=== PATIENT | male | born 1960 | race Caucasian/White ===

== ENCOUNTER 2021-10-19 18:05 | Emergency (ER) | payer MEDICARE, MEDICAID, SELFPAY ==
[2021-10-19 18:09] VITALS: BP 146/74; PULSE 82; RESP 17; TEMP 36.8; O2SAT 94; BMI 21.3
--- NOTE | 2021-10-19 18:19 | ED_ITS ---
HPI - General Adult General: Chief complaint: Trauma Stated complaint: L HAND INJURY Time Seen by Provider: 10/19/21 18:13 History of Present Illness: Patient is a 61-year-old male with a history of pulmonary who complains of left hand pain. Patient tells me he put his hand between 2 plates about an hour ago and since then has been having severe hand pain. Patient denies any other injury. Denies any anticoagulation. No other focal complaints at this time. Onset:1 hr and 20 minutes ago Duration:ongoing Location:home Severity:moderate/severe Associated symptoms: Deny chest pain, dyspnea, nausea, rash, palpitations or vomiting Review of Systems Const: Denies: fever(s) or chills Eyes: Denies: change in vision ENMT: Denies: mouth pain Card: Denies: chest pain or palpitations Resp: Denies: dyspnea or non-productive cough GI: Denies: abdominal pain, nausea, vomiting or diarrhea : Denies: dysuria Musc: Reports: extremity pain (+L hand pain) Skin/Breast: Denies: rash or new lesions Neuro: Denies: weakness in extremities Psych: Reports: other (Normal mood) Patrice/Lymph: Denies: easy bruising PFSH ED PFSH: Medical History Lymphoma Social History Smoking and tobacco status: never smoked Alcohol intake: never Substance/Drug Use: never Physical Exam Const: COMMON NORMALS: alert HENMT: COMMON NORMALS: atraumatic HEAD & SCALP: atraumatic MOUTH: moist mucous membranes not abnormal Eye: COMMON NORMALS: EOMs intact bilaterally and conjunctivae normal CONJUNCTIVA: Yes conjunctivae normal Neck/C-Spine: COMMON NORMALS: full ROM and supple Resp: COMMON NORMALS: normal respiratory effort and clear to auscultation bilaterally AUSCULTATION: clear to auscultation bilaterally Cardio: COMMON NORMALS: regular rate RATE: regular rate GI: COMMON NORMALS: Soft to palpation and non-tender PALPATION: Yes Soft to palpation Extremity: COMMON NORMALS: full ROM OTHER: +L left first and second PIP swelling and tenderness to palpation, no focal wrist tenderness palpation, cap refill less than 3 seconds in the affected extremity, sensation intact in the radial/median/ulnar distribution of the left hand, no scapholunate tenderness to palpation, no anatomic snuffbox tenderness on the affected side Neuro: SENSORIUM/ORIENTATION: Yes alert MOTOR EXAM: No Abnormal motor strength present and Other motor observations present (no focal motor deficits) Psych: COMMON NORMALS: speech normal SPEECH: Yes normal speech MOOD & AFFECT: Yes euthymic mood Course Vital Signs: Vital signs: Vital Signs Temperature 98.2 F 10/19/21 18:09 Pulse Rate 76 10/19/21 20:19 Respiratory Rate 17 10/19/21 18:09 Blood Pressure 140/85 10/19/21 20:19 Pulse Oximetry 95 10/19/21 20:19 MDM - General Adult Medical Decision Making 61-year-old male with history of lymphoma presents emergency room after crushing his left hand between to place a metal bar hours 20 minutes ago. On physical exam, patient is moderate tenderness palpation first and second digit PIP joints Neurovascular exam intact in the affected extremity. X-ray showed no focal fracture. Patient is given strict return instructions repeat x-ray in 1 week to ensure that he does not have any acute fractures. He declined to have any pain medication today. Disposition: Discharge. Patient counseled regarding diagnostic impression, treatment plan. Patient given ED strict return precautions to return for continuation, worsening, or development of new symptoms. Instructed to f/u w/ PCP regarding symptoms today. Patient verbalized understanding. Lab Data : 10/19/21 18:55 10/19/21 18:55 Radiology Impressions Hand X-Ray 10/19/21 18:17 IMPRESSION: No acute findings. Degenerative changes of the hand as described in the body of the report Laboratory Results WBC 3.9 10^3/uL (4.0-10.0) L 10/19/21 18:55 RBC 4.05 10^6/uL (4.1-5.3) L 10/19/21 18:55 Hgb 12.6 g/dL (11.7-16.6) 10/19/21 18:55 Hct 36.4 % (42.0-52.0) L 10/19/21 18:55 MCV 89.9 fl (80-94) 10/19/21 18:55 MCH 31.1 pg (28.0-34.0) 10/19/21 18:55 MCHC 34.6 g/dL (30.0-36.0) 10/19/21 18:55 RDW 13.2 % (12.1-15.1) 10/19/21 18:55 Plt Count 155 10^3/cmm (130-400) 10/19/21 18:55 MPV 10.3 fL (7.4-10.4) 10/19/21 18:55 Neut % (Auto) 45.6 % 10/19/21 18:55 Lymph % (Auto) 43.4 % 10/19/21 18:55 [place] % (Auto) 8.1 % 10/19/21 18:55 Eos % (Auto) 2.1 % 10/19/21 18:55 Baso % (Auto) 0.5 % 10/19/21 18:55 Neut # (Auto) 1.76 10^3/uL (1.8-7.7) L 10/19/21 18:55 Lymph # (Auto) 1.7 10^3/uL (0.8-4.8) 10/19/21 18:55 [place] # (Auto) 0.3 10^3/uL (0.2-0.9) 10/19/21 18:55 Eos # (Auto) 0.1 10^3/uL (0.0-0.8) 10/19/21 18:55 Baso # (Auto) 0.0 10^3/uL (0.0-0.1) 10/19/21 18:55 Nucleated RBC % (auto) 0 % 10/19/21 18:55 Nucleated RBCs # 0.0 /100WBC 10/19/21 18:55 PT 13.70 SECONDS (12.1-14.9) 10/19/21 18:55 INR 1.02 (0.8-1.2) 10/19/21 18:55 APTT 27.5 SECONDS (23.9-36.7) 10/19/21 18:55 Sodium 143 mmol/L (136-145) 10/19/21 18:55 Potassium 3.5 mmol/L (3.5-5.1) 10/19/21 18:55 Chloride 107 mmol/L (98-107) 10/19/21 18:55 Carbon Dioxide 23 mmol/L (22-29) 10/19/21 18:55 Anion Gap 16.5 (5-19) 10/19/21 18:55 BUN 21 mg/dL (8-23) 10/19/21 18:55 Creatinine 0.8 mg/dL (0.7-1.2) 10/19/21 18:55 GFR Calculation 98.3 mL/min (90-130) 10/19/21 18:55 Glucose 108 mg/dL (65-115) 10/19/21 18:55 Calculated Osmolality 300 mOsm/kg (285-295) H 10/19/21 18:55 Calcium 8.3 mg/dL (8.5-10.5) L 10/19/21 18:55 Imaging Data Other Imaging: Radiologist's impression: [facility] [address] XRay Report Signed Patient: Stuart Bravo Unit #: [id number] : 1960 Age/Sex: 61 / M ADM Date: 10/19/21 Loc: ER Room/Bed: Attending Dr: Ordering Provider/Ordering MD: Vanessa Schmitz MD Date of Service: 10/19/21 Procedure(s): XR hand LT min 3V* [id number] Accession Number(s): [id number] Report Number: [id number] PROCEDURE INFORMATION: Exam: XR Left Hand Exam date and time: 10/19/2021 6:26 PM Age: 61 years old Clinical indication: Pain; Hand; Left; Additional info: Hand pain TECHNIQUE: Imaging protocol: Radiologic exam of the Left hand. Views: 3 or more views. COMPARISON: No relevant prior studies available. FINDINGS: Bones/joints: Negative for fracture. Moderate DJD centered within the PIP joints of the 2nd through 5th digits. Mild DJD of the base of the thumb. Soft tissues: Normal. XR/XR hand LT min 3V* [id number] IMPRESSION: No acute findings. Degenerative changes of the hand as described in the body of the report ? Dictated By: Clifton Hi DO Signed By: Clifton Hi DO Signed Date/Time: 10/19/211939 DD/ 25 Discharge Plan Discharge Patient Disposition: Home Clinical Impression: Hand pain, left Condition: Stable Discharge Orders: Discharge ED (Routine); Ordered 10/19/21 Ordered By: Vanessa Schmitz Discharge Diet: Advance as tolerated Discharge Activity: Increase activity as tolerated Patient Instructions: Arthralgia (ED) Activity Restrictions/Additional Instructions: Please come back to the ED if your pain worsens. Please repeat x-ray in 1 week to ensure that he will have any fractures. Coding Level of Care Code ED Mammal Control Agent for Belinda Fwd Exam Comprehensive
[2021-10-19 18:47] VITALS: BP 137/92; PULSE 75; O2SAT 95
[2021-10-19 18:57] LABS: Basophils % 0.5 %; Eosinophils # 0.1 10^3/uL (0.0-0.8); Eosinophils % 2.1 %; Hematocrit 36.4 % (42.0-52.0); Hemoglobin 12.6 g/dL (11.7-16.6); Lymphocytes # 1.7 10^3/uL (0.8-4.8); Lymphocytes % 43.4 %; Mean Corpuscular HGB Conc 34.6 g/dL (30.0-36.0); Mean Corpuscular Hemoglobin 31.1 pg (28.0-34.0); Mean Corpuscular Volume 89.9 fl (80-94); Mean Platelet Volume 10.3 fL (7.4-10.4); Monocytes # 0.3 10^3/uL (0.2-0.9); Monocytes % 8.1 %; Neutrophils # 1.76 10^3/uL (1.8-7.7); Neutrophils % 45.6 %; Nucleated Red Blood Cells % 0 %; Platelet Count 155 10^3/cmm (130-400); Red Blood Count 4.05 10^6/uL (4.1-5.3); Red Cell Distribution Width 13.2 % (12.1-15.1); White Blood Count 3.9 10^3/uL (4.0-10.0)
[2021-10-19 19:15] LABS: INR 1.02 (0.8-1.2)
[2021-10-19 19:16] LABS: Partial Thromboplastin Time 27.5 SECONDS (23.9-36.7)
[2021-10-19 19:33] LABS: Anion Gap 16.5 (5-19); Blood Urea Nitrogen 21 mg/dL (8-23); Calcium 8.3 mg/dL (8.5-10.5); Carbon Dioxide 23 mmol/L (22-29); Chloride 107 mmol/L (98-107); Glomerular Filtration Rate 98.3 mL/min (90-130); Glucose 108 mg/dL (65-115); Osmolality Calculated 300 mOsm/kg (285-295); Potassium 3.5 mmol/L (3.5-5.1); Sodium 143 mmol/L (136-145)
[2021-10-19 20:19] VITALS: BP 140/85; PULSE 76; O2SAT 95
== END 2021-10-19 20:10 | disposition home or self-care (01) ==
PROVIDERS: Emergency Provider Emergency Medicine
DX: M79.642 Pain in left hand (principal); Z85.72 Personal history of non-Hodgkin lymphomas
CPT/HCPCS: 73130; 80048; 85025; 85610; 85730; 99283

== ENCOUNTER → 2024-05-21 10:16 | Outpatient (BNVA) | payer MEDICARE, MEDICAID, SELFPAY | PROVIDERS: PCP Nurse Practitioner Family; Visit Provider Physician Assistant | DX: M79.644 Pain in right finger(s) (principal); G56.01 Carpal tunnel syndrome, right upper limb | CPT/HCPCS: 73130; 99203 ==

== ENCOUNTER 2025-02-19 16:06 | Inpatient (IN) | payer OTHER, MEDICAID, SELFPAY ==
--- OUTSIDE RECORDS SUMMARY | 2024-02-22 04:00 | XMS_ITS ---
Author Organization [facility] Address [address] [place] [address] Care Team Providers Care Firearms Inspector Name Role Phone Migration, Provider Unavailable Unavailable REASON FOR VISIT EMR-Ajime Encounters Encounter Location Date Provider Diagnosis Migrated_Facility 0 0 02/22/2024 Provider Migration Plan Of Treatment No Information Progress Notes * Stuart BRAVO EDOB: (64 yo M)Acc No.[id number]:02/22/2024 Patient: Yohana MATHEWStuart FREY :1960 A ge:63 Y S ex:Male Address:[address] [place] [id number] Subjective: * Chief Complaints: * E MR-Jaime * * Date:
--- OUTSIDE RECORDS SUMMARY | 2024-02-23 04:00 | XMS_ITS ---
Author Organization [facility] Address [address] [facility] [place] [address] Care Team Providers Care Satellite Manager Name Role Phone Migration, Provider Unavailable Unavailable Allergies Allergen (clinical drug ingredient) Drug/Non Drug Allergy documented on EMR Reaction Allergy Type Onset Date Status codeine Codeine , , Drug Allergy Active REASON FOR VISIT EMR-Jaime Encounters Encounter Location Date Provider Diagnosis Migrated_Facility 0 0 02/23/2024 Provider Migration Plan Of Treatment No Information Progress Notes * Stuart CRAWLEY EDOB: (64 yo M)Acc No.[id number]:02/23/2024 Patient: Stuart CARRANZA Janice :1960 A ge:63 Y S ex:Male Address:[address] [place] [address], [place] [id number] Subjective: * Chief Complaints: * E MR-Jaime * Allergies: C odeine: , , - Allergy * * Date:
--- NOTE | 2025-02-19 16:09 | CTR_ITS ---
PROCEDURE INFORMATION: Exam: CT Head Without Contrast Exam date and time: 02/19/2025 4:46 PM Age: 64 years old Clinical indication: Altered mental status/memory loss; Confusion or disorientation; Additional info: AMS TECHNIQUE: Imaging protocol: Computed tomography of the head without contrast. Radiation optimization: All CT scans at this facility use at least one of these dose optimization techniques: automated exposure control; mA and/or kV adjustment per patient size (includes targeted exams where dose is matched to clinical indication); or iterative reconstruction. COMPARISON: No relevant prior studies available. RADIATION DOSE METRICS: Total DLP (mGy-cm): 876.1 FINDINGS: Brain: No acute infarction, hemorrhage, mass, or extra-axial fluid collection is identified. No midline shift. Mild generalized senescent change. Cerebral ventricles: No hydrocephalus. Paranasal sinuses: Paranasal sinuses are grossly clear. Mastoid air cells: Few opacified mastoid air cells on the left. Right mastoid air cells are grossly clear. Bones: Calvarium appears intact. Mild left lamina papyracea depression deformity, age-indeterminate. Soft tissues: Unremarkable. CT/CT head wo con* [id number] IMPRESSION: No acute intracranial abnormality.
--- NOTE | 2025-02-19 16:09 | XRR_ITS ---
PROCEDURE INFORMATION: Exam: XR Chest Exam date and time: 02/19/2025 4:30 PM Age: 64 years old Clinical indication: Other: AMS TECHNIQUE: Imaging protocol: Radiologic exam of the chest. Views: 1 view. COMPARISON: No relevant prior studies available. FINDINGS: Lungs: Unremarkable. No consolidation. Pleural spaces: Unremarkable. No pleural effusion. No pneumothorax. Heart/Mediastinum: Unremarkable. No cardiomegaly. Bones/joints: Unremarkable. XR/XR chest 1V portable [id number] IMPRESSION: No acute findings.
--- NOTE | 2025-02-19 16:11 | ECG_ITS ---
[email or web address] Test Date: 2025-02-19 Pat Name: Stuart Bravo Department: Room: Gender: Male [employer]ary [employer]: : 1960 Requested By: Kedar Christine Order Number: [id number] Reading MD: ROSAURA COREA Measurements Intervals [place] Rate: 73 P: 61 AK: 169 QRS: 52 QRSD: 112 T: 43 QT: 372 QTc: 411 Interpretive Statements SINUS RHYTHM INCOMPLETE RIGHT BUNDLE BRANCH BLOCK [90+ ms QRS DURATION, TERMINAL R IN V1/V2, 40+ ms S IN I/aVL/V4/V5/V6] SEPTAL MYOCARDIAL INFARCTION , OF INDETERMINATE AGE [40+ ms Q WAVE IN V1/V2] INTERPRETATION BASED ON A DEFAULT AGE OF 40 YEARS No previous ECG available for comparison Electronically Signed On 02-21-2025 22:27:49 CDT by ROSAURA COREA [email or web address]
--- OUTSIDE RECORDS SUMMARY | 2025-02-19 16:17 | XMS_ITS | Patient Health Record ---
Author Organization [facility] Address [address] [facility] [place] [address] Care Team Providers Care Pumper Head Name Role Phone Migration, Provider Unavailable Unavailable Allergies Allergen (clinical drug ingredient) Drug/Non Drug Allergy documented on EMR Reaction Allergy Type Onset Date Status codeine Codeine , , Drug Allergy Active Reason For Referral No Information Medications Medication SIG (Take, Route, Frequency, Duration) Notes Start Date End Date Status clonazePAM 0.25 MG Tablet Disintegrating Oral Clonazepam 0.25 MG Disintegrating Tablet 08/08/2017 Active Omeprazole 20 MG Enteric Coated Capsule Omeprazole 20 MG Enteric Coated Capsule 04/30/2017 Active Amoxicillin 500 MG / Clavulanate 125 MG Oral Tablet [Augmentin 500-mg] Amoxicillin 500 MG / Clavulanate 125 MG Oral Tablet [Augmentin 500-mg] 08/08/2017 Active Carisoprodol 350 MG Oral Tablet Carisoprodol 350 MG Oral Tablet 04/01/2017 Active Immunizations Vaccine Route Administration Date Status Comme nts Influenza (whole), CPT 19398 Inactive Unknown 03/11/2014 Administered Influenza (whole), CPT 18895 Inactive Unknown 03/22/2015 Administered Influenza (whole), CPT 79957 Inactive Unknown 02/15/2016 Administered Influenza (whole), CPT 99685 Inactive Unknown 03/08/2016 Administered Influenza (whole), CPT 91571 Inactive Unknown 04/01/2017 Administered Social History Social History Additional Details Category Social Info Options Details zzMigrated Social History Migrated Social History Smoking Status:Ex-smoker (finding) Encounters Encounter Location Date Provider Diagnosis Migrated_Facility 0 0 02/23/2024 Provider Migration Migrated_Facility 0 0 02/22/2024 Provider Migration Plan Of Treatment No Information
--- NOTE | 2025-02-19 16:19 | W.ED.AMS ---
HPI - Altered Mental Status General: Chief Complaint: Alcohol Stated Complaint: ABD Pain Can't breath Time Seen by Provider: 02/19/25 16:09 Mode of arrival: wheelchair Limitations: altered mental status History of Present Illness: 64-year-old male was dropped off here by his friends. Per his friends patient is an alcoholic has been drinking heavily today. Patient here will respond to painful stimuli but not able to give any history here he does smell of alcohol no signs of injuries no known drug use. Related Data Home Medications ?Medication ?Instructions ?Recorded ?Confirmed omeprazole 10 mg capsule,delayed 10 mg PO DAILY 05/21/24 02/19/25 release albuterol sulfate 90 mcg/actuation 90 mcg inhalation Q4H PRN 02/19/25 02/19/25 aerosol inhaler (Ventolin HFA) Shortness Of Breath doxepin 50 mg capsule 50 mg PO BEDTIME 02/19/25 02/19/25 fluticasone fur. 100 mcg-umeclid 100 inh inhalation DAILY 02/19/25 02/19/25 62.5 mcg-vilant 25 mcg inhalat.powder (Trelegy Ellipta) ibuprofen 800 mg tablet (IBU) 800 mg PO TID PRN Pain 02/19/25 02/19/25 tizanidine 4 mg tablet (Zanaflex) 4 mg PO TID PRN Cramps 02/19/25 02/19/25 Allergies Allergy/AdvReac Type Severity Reaction Status Date / Time codeine Allergy ALGY-Anaphy Verified 05/21/24 10:28 laxis haloperidol (From Haldol) Allergy ADR-Agitate Verified 02/19/25 21:36 d trazodone Allergy ADR-Agitate Verified 02/19/25 21:36 d Review of Systems General: Reports: ROS unobtainable due to mental status PFS ED PFSH: Medical History (Updated 02/21/25 @ 05:46 by Kedar Christine MD) Lymphoma Social History Smoking and tobacco/nicotine status: current every day tobacco/nicotine user Alcohol intake: never Substance/Drug Use: never Physical Exam Const: OTHER: smells of etoh HENMT: COMMON NORMALS: normocephalic and atraumatic HEAD & SCALP: normocephalic and atraumatic Eye: COMMON NORMALS: Equal, round and reactive pupils present and EOMs intact bilaterally PUPIL: Yes Equal, round and reactive pupils present Neck/C-Spine: COMMON NORMALS: full ROM and supple Chest: COMMONS NORMALS: normal inspection of the chest and normal palpation of entire chest wall Resp: COMMON NORMALS: normal respiratory effort, No retractions, No use of accessory muscles and clear to auscultation bilaterally AUSCULTATION: clear to auscultation bilaterally Cardio: COMMON NORMALS: regular rate, regular rhythm and No murmurs present (Cardio) RATE: regular rate RHYTHM: regular rhythm GI: COMMON NORMALS: Normal to inspection, nondistended, normoactive bowel sounds present, Soft to palpation, non-tender and no masses PALPATION: Yes Soft to palpation Extremity: COMMON NORMALS: normal to inspection and full ROM Neuro: COMMON NORMALS: moves all extremities and no focal motor deficits Psych: COMMON NORMALS: mental status grossly normal, Normal thought process present and cooperative THOUGHT PROCESS: Normal thought process present Skin: COMMON NORMALS: no rashes or lesions noted and no wounds GENERAL SKIN EXAM: no rashes or lesions noted Course Reevaluation(s): Reevaluation #1: Patient is now waking up and answering questions he states that he is severely depressed has no family and was trying to drink himself to today and is suicidal. Time: 16:30 Vital Signs: Vital signs: Vital Signs Temperature 98.1 F 02/20/25 20:00 Pulse Rate 50 L 02/21/25 04:00 Respiratory Rate 15 02/21/25 04:00 Blood Pressure 134/80 02/21/25 04:00 Pulse Oximetry 96 02/21/25 04:00 Oxygen Delivery Me thod Room Air 02/20/25 20:00 MDM - Altered Mental Status Medical Decision Making Patient presents here with suicidal ideation. Patient has been well-appearing here he is now awake and alert and at his baseline. Patient is intoxicated when he first arrived. He is placed under 96-hour hold he is now medically cleared and is excepted to the Neuropsych Unit by Dr. Horner. And will admit Medical Records I reviewed the patient's medical records. Lab Data I reviewed the patient's lab results. 02/19/25 16:25 02/19/25 17:09 Radiology Impressions Chest X-Ray 02/19/25 16:09 IMPRESSION: No acute findings. Head CT 02/19/25 16:09 IMPRESSION: No acute intracranial abnormality. Laboratory Results WBC 6.00 10^3/uL (3.29-11.43) 02/19/25 16: RBC 4.66 10^6/uL (3.85-5.65) 02/19/25 16: Hgb 14.30 g/dL (11.27-16.99) 02/19/25 16: Hct 42.2 % (37-53) 02/19/25 16: MCV 90.6 fl (82-101) 02/19/25 16: MCH 30.7 pg (27-33) 02/19/25 16: MCHC 33.9 g/dL (30-55) 02/19/25 16: RDW 13.6 % (12.1-15.1) 02/19/25 16: Plt Count 217 10^3/cmm (157-399) 02/19/25: MPV 10.0 fL (7.4-10.4) 02/19/25 16: Neut % (Auto) 39.2 % 02/19/25 16:25 Lymph % (Auto) 42.8 % 02/19/25 16:25 Isabella % (Auto) 12.7 % 02/19/25 16:25 Eos % (Auto) 4.0 % 02/19/25: Baso % (Auto) 1.0 % 02/19/25: Neut # (Auto) 2.35 10^3/uL (1.8-7.7) 02/19/25 16:25 Lymph # (Auto) 2.6 10^3/uL (0.8-4.8) 02/19/25 16:25 Isabella # (Auto) 0.8 10^3/uL (0.2-0.9) 02/19/25 16: Eos # (Auto) 0.2 10^3/uL (0.0-0.8) 02/19/25 16:25 Baso # (Auto) 0.1 10^3/uL (0.0-0.1) 02/19/25 16: Nucleated RBC % (auto) 0 % 02/19/25 16:25 Nucleated RBCs # 0.0 /100WBC 02/19/25 16:25 Sodium 140 mmol/L (136-145) 02/19/25 17:09 Potassium 3.7 mmol/L (3.5-5.1) 02/19/25 17:09 Chloride 105 mmol/L (98-107) 02/19/25 17:09 Carbon Dioxide 21 mmol/L (22-29) L 02/19/25 17:09 Anion Gap 17.7 (5-19) 02/19/25 17:09 BUN 19 mg/dL (8-23) 02/19/25 17:09 Creatinine 0.8 mg/dL (0.7-1.2) 02/19/25 17:09 GFR Calculation 97.3 mL/min (90-130) 02/19/25 17:09 Glucose 91 mg/dL (65-115) 02/19/25 17:09 POC Glucose 218 mg/dL (70-110) H 02/19/25 17:03 Calculated Osmolality 292 mOsm/kg (285-295) 02/19/25 17:09 Calcium 8.4 mg/dL (8.5-10.5) L 02/19/25 17:09 Magnesium 1.9 mg/dL (1.7-2.3) 02/19/25 17:09 Total Bilirubin 0.2 mg/dL (0.15-1.2) 02/19/25 17:09 AST 49 U/L (0-40) H 02/19/25 17:09 ALT 21 U/L (0-41) 02/19/25 17:09 Alkaline Phosphatase 70 U/L (40-130) 02/19/25 17:09 Total Protein 7.3 g/dL (6.6-8.7) 02/19/25 17:09 Albumin 4.3 g/dL (3.5-5.2) 02/19/25 17:09 Globulin 3.0 g/dL (1.3-4.6) 02/19/25 17:09 Salicylates < 0.3 mg/dL (3-10) L 02/19/25 17:09 Urine Opiates Screen Negative ng/mL (Negative) 02/19/25 18:40 Acetaminophen < 5.0 ug/mL (10-30) L 02/19/25 17:09 Ur Barbiturates Screen Negative ng/mL (Negative) 02/19/25 18:40 Ur Phencyclidine Scrn Negative ng/mL (Negative) 02/19/25 18:40 Ur Amphetamines Screen Negative ng/mL (Negative) 02/19/25 18:40 U Benzodiazepines Scrn Negative ng/mL (Negative) 02/19/25 18:40 Urine Cocaine Screen Negative ng/mL (Negative) 02/19/25 18:40 U Marijuana (THC) Screen Negative ng/mL (Negative) 02/19/25 18:40 Ethyl Alcohol 283 mg/dL (0-10) H 02/19/25 17:09 All radiology interpretation(s) finalized by discharge EKG Data EKG 1: I personally reviewed and interpreted this EKG as follows: EKG interpretation date: 02/19/25 EKG interpretation time: 16:11 Interpretation: nsr hr [address] elevation qrs 112 qtc 398 Discharge Plan Discharge Patient Disposition: Admitted As Inpatient Admit Provider: Kevin Powell Clinical Impression: Suicidal ideation, Alcoholic intoxication Condition: Stable Coding Level of Care Code ED Automotive Brake Technician for Chg Peter
[2025-02-19 16:23] VITALS: BP 163/109; PULSE 72; RESP 14; TEMP 36.7; O2SAT 99
[2025-02-19 16:29] LABS: Hematocrit 42.2 % (37-53); Hemoglobin 14.30 g/dL (11.27-16.99); Mean Corpuscular HGB Conc 33.9 g/dL (30-55); Mean Corpuscular Hemoglobin 30.7 pg (27-33); Mean Corpuscular Volume 90.6 fl (82-101); Nucleated Red Blood Cells % 0 %; Platelet Count 217 10^3/cmm (157-399); Red Blood Count 4.66 10^6/uL (3.85-5.65); White Blood Count 6.00 10^3/uL (3.29-11.43)
[2025-02-19] MEDS: thiamine 100 mg/mL 2mL SDV IVP (16:30)
[2025-02-19] MEDS: ondansetron 2 mg/ML SDV 2 mL 4 MG IVP (16:30)
--- NOTE | 2025-02-19 16:56 | PC.NURSE ---
pt was read his 96 hour hold rights at this time. Security present
[2025-02-19 17:06] VITALS: BP 168/90; PULSE 68; RESP 18; O2SAT 98
[2025-02-19 17:31] LABS: Alanine Aminotransferase 21 U/L (0-41); Albumin Level 4.3 g/dL (3.5-5.2); Alkaline Phosphatase 70 U/L (40-130); Anion Gap 17.7 (5-19); Aspartate Amino Transferase 49 U/L (0-40); Blood Urea Nitrogen 19 mg/dL (8-23); Calcium 8.4 mg/dL (8.5-10.5); Carbon Dioxide 21 mmol/L (22-29); Chloride 105 mmol/L (98-107); Globulin 3.0 g/dL (1.3-4.6); Glucose 91 mg/dL (65-115); Magnesium 1.9 mg/dL (1.7-2.3); Osmolality Calculated 292 mOsm/kg (285-295); Potassium 3.7 mmol/L (3.5-5.1); Sodium 140 mmol/L (136-145); Total Protein 7.3 g/dL (6.6-8.7)
[2025-02-19 17:50] LABS: Salicylate < 0.3 mg/dL (3-10)
[2025-02-19 17:51] LABS: Acetaminophen < 5.0 ug/mL (10-30); Alcohol Level 283 mg/dL (0-10)
[2025-02-19 18:56] LABS: PCP Screen Urine Negative (Negative)
[2025-02-19 20:00] VITALS: BP 147/86; PULSE 65; RESP 18; TEMP 37; O2SAT 99
[2025-02-19 23:04] VITALS: BP 108/70; PULSE 83; RESP 14; O2SAT 96
[2025-02-20 04:10] VITALS: BP 112/64; PULSE 62; RESP 18; TEMP 36.7; O2SAT 97
[2025-02-20 06:59] VITALS: BP 125/72; PULSE 56; RESP 16; TEMP 36.4; O2SAT 95
[2025-02-20] MEDS: FLU VACC TS2025-26(6MOS UP)/PF 45 MCG/0.5 ML SYRINGE IM (08:14)
[2025-02-20] MEDS: multivitamin therapeutic Tablet 1 TAB PO (08:16)
--- NOTE | 2025-02-20 10:07 | W.PM.NPUH&PS ---
Providers/Chief Complaint Admitting Physician: Kevin Powell MD Primary Care Provider: TRACEY Wang Chief Complaint: ABD Pain Can't breath HPI NPU History of Present Illness Stuart Bravo is a 64 year old male who presented with a blood alcohol level of 283 to the emergency department. The patient had been dropped off by his friends from work and stated that they were concerned because the patient had been reporting that his desire to harm himself. The patient was admitted to the neuropsychiatric unit for further evaluation and treatment. The patient on interview, reports a 45-year history of alcohol abuse with associated shakes and alcohol-related withdrawal symptoms. He endorses a history of blackouts. He states that he had been sober for nearly 6 years but reports that a few months ago he began to drink again more heavily. He reports that he has had blackouts and reports that he has been concerned about his mood for several months. He acknowledges having depression and low energy and low motivation. He endorses having suicidal thoughts but did not endorse a plan. He reports that he has been feeling more hopeless recently. He denies any tearfulness. He does report a lack of interest in previously enjoyable activities. He states that he feels lonely and has no social supports. He states that he has been more depressed particularly since his mother in August of this year. The patient had also reported having problems with managing his worries as he had reported having a previous history of anxiety attacks. He denies any psychosis. He denied any lion. The patient had reported that he had been feeling more tired recently. He had stated that he wishes to stop the use of alcohol as he had reported a history of drinking anywhere from 1/5-1/2 a gallon of whiskey for several years. He reports continued use of alcohol despite adverse consequences and states that he recently had spit up blood and had some blood in his rectum. He states that he is scheduled for a more further evaluation on outpatient basis on April 01 through in [place]. The patient reported that he has had abstinence for as long as 6 years but states that he is not receiving any formal treatment for his alcohol use. He reports having difficulties falling asleep. He denied any PTSD symptoms. Psychiatric history: He reports 1 previous inpatient hospitalization in 2019 in [place] for severe depression. He had reported no current outpatient treatment for mental health issues. Substance abuse history: He denied any illicit substance use but reports that he has been using alcohol heavily on it continuous basis for 45 years with reports of several inpatient substance abuse treatments and several detox hospitalizations with a history of DTs and blackouts noted. Medical history: History of nonhodgkins lymphoma, history of GERD, history of carpal tunnel syndrome, Followed by Dr. Ho through [facility] outpatient. Surgical history: History of a tracheotomy, Allergies: Codeine, chocolate, cinnamon Medications: Albuterol inhaler, fluticasone, doxepin 50 mg at night, omeprazole 10 mg daily, tizanidine 4 mg 3 times a day as needed Legal history: None reported other than a history of DUI history: Patient had a just honorable discharge after serving 3 years in the [employer] having served in the [place] [employer]. Family psychiatric history: Significant for alcoholism on both sides of the family. Social history: The patient was born in [place] and raised in an intact family. He had 5 brothers and 1 sister. He had reported a happy childhood and denied any history of sexual physical or emotional abuse. He had graduated from high school and [employer] and joined the soon after. He had reported no problems with learning. He had stated that he had a problem with authority leading to his ultimate discharge from the . He had worked in [employer] and currently works locally while residing in [place]. He is currently not in a relationship and had previously been and has been for more than 25 years. He has 1 son who he he sees occasionally in [facility]. He is currently on disability. Labs: Elevated AST=49. Meds NPU Home Medications ?Medication ?Instructions ?Recorded ?Confirmed ?Last Taken ?Type omeprazole 10 mg capsule,delayed 10 mg PO DAILY 05/21/24 02/19/25 1 Day Ago History release ~02/18/25 10 albuterol sulfate 90 mcg/actuation 90 mcg inhalation Q4H PRN 02/19/25 02/19/25 Unknown History aerosol inhaler (Ventolin HFA) Shortness Of Breath doxepin 50 mg capsule 50 mg PO BEDTIME 02/19/25 02/19/25 Unknown History fluticasone fur. 100 mcg-umeclid 100 inh inhalation DAILY 02/19/25 02/19/25 1 Day Ago History 62.5 mcg-vilant 25 mcg ~02/18/25 inhalat.powder (Trelegy Ellipta) 100 ibuprofen 800 mg tablet (IBU) 800 mg PO TID PRN Pain 02/19/25 02/19/25 Unknown History tizanidine 4 mg tablet (Zanaflex) 4 mg PO TID PRN Cramps 02/19/25 02/19/25 Unknown History Allergies Allergy/AdvReac Type Severity Reaction Status Date / Time codeine Allergy ALGY-Anaphy Verified 05/21/24 10:28 laxis haloperidol (From Haldol) Allergy ADR-Agitate Verified 02/19/25 21:36 d trazodone Allergy ADR-Agitate Verified 02/19/25 21:36 d PFSH NPU PFSH: Medical History (Updated 02/20/25 @ 10:31 by Kevin Powell MD) Lymphoma Social History Smoking and tobacco/nicotine status: current every day tobacco/nicotine user Alcohol intake: never Substance/Drug Use: never Mental Status Exam MSE Comments: Patient is a casually dressed male who appeared his stated age with poor hygiene and a steady gait. There was no evidence of any abnormal involuntary motor movements, tics, or tremors appreciated. His speech was slightly slurred and at times difficult to understand with inconsistent elevation in volume at times with normal prosody. His mood was described as depressed. His affect was restricted in range and mood congruent. He had denied any suicidal ideation currently but indicated that he may have made a statement about being suicidal under the influence of alcohol. He denied any homicidal ideation. He denied any auditory or visual hallucinations. He did not appear to be responding to internal stimuli. There was no evidence of delusional thinking. He was alert and oriented to month and year but not date or day of the week. His recent and remote memory appeared mildly impaired. His attention span appeared adequate. His insight is poor. His judgment is limited. His impulse control appeared guarded at this time. Vitals/I&O/Wt Last Vital Signs Temp 97.5 F L 02/20/25 06:59 Pulse 56 L 02/20/25 06:59 Resp 16 02/20/25 06:59 BP 125/72 02/20/25 06:59 Pulse Ox 95 02/20/25 06:59 O2 Del Method Room Air 02/20/25 06:59 Weight last 48 hrs Weight 77.111 kg Data NPU 02/19/25 16:25 02/19/25 17:09 A&P Assessment and plan 1. Depression, unspecified: 2. Suicidal ideation: 3. Alcohol dependence: Plan: 64-year-old male with a long history of alcohol dependence and alcohol-related withdrawal symptoms who presents intoxicated with some depression and suicidal ideation. ? 1.? ?Engage patient in individual ,milieu, and group therapy ?2. ? We will attempt to gather collateral information. ?3. ? TO-15 minute checks on the unit. ?4.? Recommend sober living treatment at the highest level of care to which the patient is willing to commit. ? 5. ? [facility] protocol, restart outpatient medications. PDMP PDMP Reviewed: Not Reviewed Involuntary Hold Information Hold Status: Legal Status: 96 Hour Hold Date/Time Hold Expires: 02/25/25@16:30 Attestations NPU Medical Necessity Statement*: Inpatient hospitalization is medically necessary and be clinically appropriate vet at this time.? We will monitor/initiate medications and make changes as indicated.? He will be in the hospital for over 2 midnights.? The patient's likely length of stay 7-10 days. Coding Level of Care Code Acute Code for Chg Fwd Diagnoses Depression, unspecified F32.A Suicidal ideation R45.851 Alcohol dependence F10.20
[2025-02-20 11:14] VITALS: BP 122/64; PULSE 56; RESP 16; TEMP 37; O2SAT 94
[2025-02-20 15:32] VITALS: BP 130/77; PULSE 61; RESP 16; TEMP 36.6; O2SAT 96
[2025-02-20 20:00] VITALS: BP 141/81; PULSE 57; RESP 16; TEMP 36.7; O2SAT 96
[2025-02-21] VITALS (7 sets, daily range): BP systolic 123–148; BP diastolic 78–87; PULSE 48–113; RESP 15–20; TEMP 36.3–37.6; O2SAT 94–98
[2025-02-21] MEDS: multivitamin therapeutic Tablet 1 TAB PO (07:55)
--- NOTE | 2025-02-21 13:50 | P.NPUPN_ITS ---
Subjective NPU 2 Subjective: 64-year-old male with reports of depress ion admitted with suicidal ideation in the context of relapsing on alcohol recently. The patient reported having some tremors today. He had reported feeling better. He had denied any feelings of hopelessness or worthlessness. He had denied having any problems with memory or concentration. The patient reported improved sleep last night. The patient reported that he had a recent evaluation scheduled due to blood in his stools and having spit up blood in the past. He had remained quiet and compliant on the milieu. Mental Status Exam 2 MSE Comments: Patient is a casually dressed male who appeared his stated age with poor hygiene and a steady gait. There was no evidence of any abnormal involuntary motor movements, other than a mild tremor. His speech was normal in rate and rhythm with normal volume and normal prosody. His mood was described as okay. His affect was restricted in range and mood incongruent. He had denied any suicidal ideation or homicidal ideation. He denied any auditory or visual hallucinations. He did not appear to be responding to internal stimuli. There was no evidence of delusional thinking. He was alert and oriented x3 today. His recent and remote memory appeared to be improving. His attention span appeared adequate. His insight is poor. His judgment is limited. His impulse control appeared guarded at this time. Vitals/I&O/Wt Last Vital Signs Temp 97.4 F L 02/21/25 10:54 Pulse 48 L 02/21/25 10:54 Resp 16 02/21/25 10:54 BP 148/83 02/21/25 10:54 Pulse Ox 97 02/21/25 10:54 O2 Del Method Room Air 02/21/25 10:54 Weight last 48 hrs Weight 70.307 kg Weight 77.111 kg Data NPU 02/19/25 16:25 02/19/25 17:09 A&P Assessment and plan 1. Depression, unspecified: 2. Suicidal ideation: 3. Alcohol dependence: Plan: 64-year-old male with a long history of alcohol dependence and alcohol- related withdrawal symptoms who presents intoxicated with some depression and suicidal ideation. ? 1.? ?Engage patient in individual ,milieu, and group therapy ?2. ? We will attempt to gather collateral information. ?3. ? TO-15 minute checks on the unit. ?4.? Recommend sober living treatment at the highest level of care to which the patient is willing to commit. ? 5. ? [facility] protocol, Continue doxepin 50mg at night. PDMP PDMP Reviewed: Not Reviewed Involuntary Hold Information 2 Hold Status: Legal Status: 96 Hour Hold Date/Time Hold Expires: 1 @16:30 Attestations NPU 2 Medical Necessity Statement*: Inpatient hospitalization is medically necessary and be clinically appropriate vet at this time.? We will monitor/initiate medications and make changes as indicated.? The patient's likely length of stay 3-5 days. Coding Level of Care Code Acute Code for Chg Fwd Diagnoses Depression, unspecified F32.A Suicidal ideation R45.851 Alcohol dependence F10.20
[2025-02-22 00:45] VITALS: BP 120/73; PULSE 62; RESP 18; O2SAT 95
[2025-02-22 08:06] VITALS: BP 110/63; PULSE 56; RESP 16; TEMP 36.6; O2SAT 100
[2025-02-22] MEDS: multivitamin therapeutic Tablet 1 TAB PO (08:58)
[2025-02-22 11:59] VITALS: BP 114/60; PULSE 65; RESP 16; TEMP 37; O2SAT 100
--- NOTE | 2025-02-22 15:43 | P.NPUPN_ITS ---
Subjective NPU 2 Subjective: 64-year-old male with reports of depress ion admitted with suicidal ideation in the context of relapsing on alcohol recently. The patient was not endorsing any suicidal thoughts currently. He denied any depression and did not wish to consider receiving treatment for his mood. He had reported adequate sleep but reported that he had had as needed medication yesterday to help with alcohol related withdrawal symptoms. He had reported feeling better today. He had been less isolative and appeared more motivated. He was hopeful about returning back to work. He had stated that he would likely follow-up with his appointments to determine the cause of his blood in his stools and in his phlegm. Mental Status Exam 2 MSE Comments: Patient is a casually dressed male who appeared his stated age with improved hygiene and a steady gait. There was no evidence of any abnormal involuntary motor movements with no tremor appreciated today. His speech was normal in rate and rhythm with normal volume and normal prosody. His mood was described as okay. His affect was restricted in range and mood incongruent. He had denied any suicidal ideation or homicidal ideation. He denied any auditory or visual hallucinations. He did not appear to be responding to internal stimuli. There was no evidence of delusional thinking. He was alert and oriented x3 today. His recent and remote memory appeared to be improving. His attention span appeared adequate. His insight is fair. His judgment is improving. His impulse control appeared to be improving. Vitals/I&O/Wt Last Vital Signs Temp 98.6 F 02/22/25 11:59 Pulse 65 02/22/25 11:59 Resp 16 02/22/25 11:59 BP 114/60 02/22/25 11:59 Pulse Ox 100 02/22/25 11:59 O2 Del Method Room Air 02/22/25 11:59 Weight last 48 hrs Weight 70.307 kg Data NPU 02/19/25 16:25 02/19/25 17:09 A&P Assessment and plan 1. Depression, unspecified: 2. Suicidal ideation: 3. Alcohol dependence: Plan: 64-year-old male with a long history of alcohol dependence and alcohol- related withdrawal symptoms who presents intoxicated with some depression and suicidal ideation. ? 1.? ?Engage patient in individual ,milieu, and group therapy ?2. ? We will attempt to gather collateral information. ?3. ? TO-15 minute checks on the unit. ?4.? Recommend sober living treatment at the highest level of care to which the patient is willing to commit. ? 5. ? [facility] protocol, Continue doxepin 50mg at night. PDMP PDMP Reviewed: Not Reviewed Involuntary Hold Information 2 Hold Status: Legal Status: 96 Hour Hold Date/Time Hold Expires: 1 @16:30 Attestations NPU 2 Medical Necessity Statement*: Inpatient hospitalization is medically necessary and be clinically appropriate vet at this time.? We will monitor/initiate medications and make changes as indicated.? The patient's likely length of stay 1-2 days. Coding Level of Care Code Acute Code for Chg Fwd Diagnoses Depression, unspecified F32.A Suicidal ideation R45.851 Alcohol dependence F10.20
[2025-02-22 15:51] VITALS: BP 144/95; PULSE 65; RESP 16; TEMP 36.3; O2SAT 99
[2025-02-22 20:00] VITALS: BP 149/94; PULSE 63; RESP 17; TEMP 36.3; O2SAT 99
[2025-02-23] VITALS: BP 110/66; PULSE 72; RESP 16; TEMP 36.5; O2SAT 95
[2025-02-23 04:00] VITALS: BP 109/71; PULSE 73; RESP 16; O2SAT 94
[2025-02-23 07:54] VITALS: BP 101/64; PULSE 78; RESP 16; TEMP 37; O2SAT 98
[2025-02-23] MEDS: multivitamin therapeutic Tablet 1 TAB PO (08:08)
[2025-02-23 10:20] VITALS: BP 101/64; PULSE 78; RESP 16; TEMP 37; O2SAT 98
--- NOTE | 2025-02-23 10:37 | DCPLANNER ---
IMM completed 02/23/2025 @ 10:14 am. Pt was given a copy of rights.
--- NOTE | 2025-02-23 13:57 | W.PM.NPUDCS ---
Diagnoses at Discharge Discharge Diagnosis 1. Depression, unspecified: 2. Suicidal ideation: 3. Alcohol dependence: Reason for Visit Reason for Visit: ABD Pain Can't breath Brief History: History of Present Illness Stuart Bravo is a 64 year old male who presented with a blood alcohol level of 283 to the emergency department. The patient had been dropped off by his friends from work and stated that they were concerned because the patient had been reporting that his desire to harm himself. The patient was admitted to the neuropsychiatric unit for further evaluation and treatment. The patient on interview, reports a 45-year history of alcohol abuse with associated shakes and alcohol-related withdrawal symptoms. He endorses a history of blackouts. He states that he had been sober for nearly 6 years but reports that a few months ago he began to drink again more heavily. He reports that he has had blackouts and reports that he has been concerned about his mood for several months. He acknowledges having depression and low energy and low motivation. He endorses having suicidal thoughts but did not endorse a plan. He reports that he has been feeling more hopeless recently. He denies any tearfulness. He does report a lack of interest in previously enjoyable activities. He states that he feels lonely and has no social supports. He states that he has been more depressed particularly since his mother in August of this year. The patient had also reported having problems with managing his worries as he had reported having a previous history of anxiety attacks. He denies any psychosis. He denied any lion. The patient had reported that he had been feeling more tired recently. He had stated that he wishes to stop the use of alcohol as he had reported a history of drinking anywhere from 1/5-1/2 a gallon of whiskey for several years. He reports continued use of alcohol despite adverse consequences and states that he recently had spit up blood and had some blood in his rectum. He states that he is scheduled for a more further evaluation on outpatient basis on April 01 through in [place]. The patient reported that he has had abstinence for as long as 6 years but states that he is not receiving any formal treatment for his alcohol use. He reports having difficulties falling asleep. He denied any PTSD symptoms. Psychiatric history: He reports 1 previous inpatient hospitalization in 2019 in [place] for severe depression. He had reported no current outpatient treatment for mental health issues. Substance abuse history: He denied any illicit substance use but reports that he has been using alcohol heavily on it continuous basis for 45 years with reports of several inpatient substance abuse treatments and several detox hospitalizations with a history of DTs and blackouts noted. Medical history: History of nonhodgkins lymphoma, history of GERD, history of carpal tunnel syndrome, Followed by Dr. Ho through [facility]. Surgical history: History of a tracheotomy, Allergies: Codeine, chocolate, cinnamon Medications: Albuterol inhaler, fluticasone, doxepin 50 mg at night, omeprazole 10 mg daily, tizanidine 4 mg 3 times a day as needed Legal history: None reported other than a history of DUI history: Patient had a just honorable discharge after serving 3 years in the [employer] having served in the [place] [employer]. Family psychiatric history: Significant for alcoholism on both sides of the family. Social history: The patient was born in [place] and raised in an intact family. He had 5 brothers and 1 sister. He had reported a happy childhood and denied any history of sexual physical or emotional abuse. He had graduated from high school and [employer] and joined the soon after. He had reported no problems with learning. He had stated that he had a problem with authority leading to his ultimate discharge from the . He had worked in [employer] and currently works locally while residing in [place]. He is currently not in a relationship and had previously been and has been for more than 25 years. He has 1 son who he he sees occasionally in [facility]. He is currently on disability. Labs: Elevated AST=49. Hospital Course Hospital Course The patient had some alcohol related withdrawal symptoms requiring the use of Ativan. He did not wish for any further treatment regarding his alcohol abuse as he stated that he would like to get started back with alcoholic's Anonymous and did not wish to have any further counseling to manage depression or anxiety. During the hospitalization, the patient had routine laboratory studies which were within normal limits except for a few outliers.? Additionally, there was a general medical evaluation which was also within normal limits and revealed no new acute processes.? At the time of discharge, lethality was denied and psychosis was absent.? Mood and anxiety were well managed.? The patient endorsed a plan to avoid all drugs of abuse and follow up with the aftercare recommendations of the treatment team.? The patient was evaluated and deemed to be absent credible lethality and had achieved the maximum benefit from an inpatient hospitalization, and so was discharged. ? Involuntary Hold Information Hold Status: Legal Status: 96 Hour Hold Date/Time Hold Expires: 02/25/2025 @ 1630 Mental Status Exam MSE Comments: Patient is a casually dressed male who appeared his stated age with improved hygiene and a steady gait. There was no evidence of any abnormal involuntary motor movements with no tremor appreciated today. His speech was normal in rate and rhythm with normal volume and normal prosody. His mood was described as good. His affect was brighter on discharge. He had denied any suicidal ideation or homicidal ideation. He denied any auditory or visual hallucinations. He did not appear to be responding to internal stimuli. There was no evidence of delusional thinking. He was alert and oriented x3 today. His recent and remote memory appeared to be improving. His attention span appeared adequate. His insight is fair. His judgment is improving. His impulse control appeared to be improving. Discharge Data Studies Completed and Pending: Completed Studies During Hospitalization Category Date Time Status CT head wo con* [id number] Stat Cat Scan 02/19/25 16:09 Completed XR chest 1V betsy ble [id number] Stat Exams 02/19/25 16:09 Completed Radiology Impressions Chest X-Ray 02/19/25 16:09 IMPRESSION: No acute findings. Head CT 02/19/25 16:09 IMPRESSION: No acute intracranial abnormality. Laboratory Results WBC 6.00 10^3/uL (3.2 9-11.43) 02/19/25 16: RBC 4.66 10^6/uL (3.8 5-5.65) 02/19/25 16: Hgb 14.30 g/dL (11.27 -16.99) 02/19/25 16: Hct 42.2 % (37-53) 02/19/25 16: MCV 90.6 fl (82-101) 02/19/25 16: MCH 30.7 pg (27-33) 02/19/25 16: MCHC 33.9 g/dL (30-55) 02/19/25 16: RDW 13.6 % (12.1-15.1 ) 02/19/25 16: Plt Count 217 10^3/cmm (157 -399) 02/19/25 16:25 MPV 10.0 fL (7.4-10.4 ) 02/19/25 16:25 Neut % (Auto) 39.2 % 02/19/25 16:25 Lymph % (Auto) 42.8 % 02/19/25 16:25 Jones % (Auto) 12.7 % 02/19/25 16:25 Eos % (Auto) 4.0 % 02/19/25 16:25 Baso % (Auto) 1.0 % 02/19/25 16:25 Neut # (Auto) 2.35 10^3/uL (1.8 -7.7) 02/19/25 16:25 Lymph # (Auto) 2.6 10^3/uL (0.8- 4.8) 02/19/25 16:25 Jones # (Auto) 0.8 10^3/uL (0.2- 0.9) 02/19/25 16:25 Eos # (Auto) 0.2 10^3/uL (0.0- 0.8) 02/19/25 16:25 Baso # (Auto) 0.1 10^3/uL (0.0- 0.1) 02/19/25 16:25 Nucleated RBC % (a uto) 0 % 02/19/25 16:25 Nucleated RBCs # 0.0 /100WBC 02/19/25 16:25 Sodium 140 mmol/L (136-1 45) 02/19/25 17:09 Potassium 3.7 mmol/L (3.5-5 .1) 02/19/25 17:09 Chloride 105 mmol/L (98-10 7) 02/19/25 17:09 Carbon Dioxide 21 mmol/L (22-29) L 02/19/25 17:09 Anion Gap 17.7 (5-19) 02/19/25 17:09 BUN 19 mg/dL (8-23) 02/19/25 17:09 Creatinine 0.8 mg/dL (0.7-1. 2) 02/19/25 17:09 GFR Calculation 97.3 mL/min (90-1 30) 02/19/25 17:09 Glucose 91 mg/dL (65-115) 02/19/25 17:09 POC Glucose 218 mg/dL (70-110 ) H 02/19/25 17:03 Calculated Osmolal ity 292 mOsm/kg (285- 295) 02/19/25 17:09 Calcium 8.4 mg/dL (8.5-10 .5) L 02/19/25 17:09 Magnesium 1.9 mg/dL (1.7-2. 3) 02/19/25 17:09 Total Bilirubin 0.2 mg/dL (0.15-1 .2) 02/19/25 17:09 AST 49 U/L (0-40) H 02/19/25 17:09 ALT 21 U/L (0-41) 02/19/25 17:09 Alkaline Phosphata se 70 U/L (40-130) 02/19/25 17:09 Total Protein 7.3 g/dL (6.6-8.7 ) 02/19/25 17:09 Albumin 4.3 g/dL (3.5-5.2 ) 02/19/25 17:09 Globulin 3.0 g/dL (1.3-4.6 ) 02/19/25 17:09 Salicylates < 0.3 mg/dL (3-10 ) L 02/19/25 17:09 Urine Opiates Scre en Negative ng/mL (N egative) 02/19/25 18:40 Acetaminophen < 5.0 ug/mL (10-3 0) L 02/19/25 17:09 Ur Barbiturates Sc reen Negative ng/mL (N egative) 02/19/25 18:40 Ur Phencyclidine S crn Negative ng/mL (N egative) 02/19/25 18:40 Ur Amphetamines Sc reen Negative ng/mL (N egative) 02/19/25 18:40 U Benzodiazepines Scrn Negative ng/mL (N egative) 02/19/25 18:40 Urine Cocaine Scre en Negative ng/mL (N egative) 02/19/25 18:40 U Marijuana (THC) Screen Negative ng/mL (N egative) 02/19/25 18:40 Ethyl Alcohol 283 mg/dL (0-10) H 02/19/25 17:09 Vitals: Last Vital Signs Temp 98.6 F 02/23/25 10:20 Pulse 78 02/23/25 10:20 Resp 16 02/23/25 10:20 BP 101/64 10/28/25 10:20 Pulse Ox 98 02/23/25 10:20 O2 Del Method Room Air 02/23/25 07:54 Discharge Plan Discharge Patient Disposition: Home Condition: Stable Prescriptions: Continued omeprazole 10 mg capsule,delayed release(DR/EC) 10 mg PO DAILY albuterol sulfate [Ventolin HFA] 90 mcg/actuation HFA aerosol inhaler 90 mcg INHALATION Q4H PRN (Reason: Shortness Of Breath) ibuprofen [IBU] 800 mg tablet 800 mg PO TID PRN (Reason: Pain) tizanidine [Zanaflex] 4 mg tablet 4 mg PO TID PRN (Reason: Cramps) Trelegy Ellipta 100-62.5-25 mcg blister with device 100 inh INHALATION DAILY doxepin 50 mg capsule 50 mg PO BEDTIME 30 Days Qty: 30 1RF Discharge Order = DC NOW: Discharge Order (Routine); Ordered 02/23/25 Ordered By: Kevin Powell Referrals: [facility] [Outside] - 03/02/25 8:30 am Referral Note: Initial assessment for services with Marina Niño FNP [Primary Care Provider] Discharge Diet: Usual diet Discharge Activity: Resume usual activity Patient Instructions: Depression (DC), Anxiety (DC), Alcohol Use Disorder (DC), Suicide Prevention (DC), Opioid Safety, Patient Portal & Theo Instructions Discharge Attestations NPU Time Spent in Discharge Care*: less than 30 min Specific Discharge Activities: Specific discharge activities: educating patient, discussing with [employer]/social workers/dc planners and documenting/other paperwork Coding Level of Care Code Acute Code for Chg Fwd Diagnoses Depression, unspecified F32.A Suicidal ideation R45.851 Alcohol dependence F10.20
[2025-02-23 14:00] VITALS: BP 134/85; PULSE 80; RESP 16; TEMP 36.9; O2SAT 100
== END 2025-02-23 15:19 | disposition home or self-care (01) | DRG 897 ==
LOC: ER 17:25 → NP 19:00
PROVIDERS: Admitting Provider Psychiatry & Neurology Psychiatry; Emergency Provider Emergency Medicine; PCP Nurse Practitioner Family; Visit Provider Psychiatry & Neurology Psychiatry
DX: F10.229 Alcohol dependence with intoxication, unspecified (principal); R45.851 Suicidal ideations; Y90.8 Blood alcohol level of 240 mg/100 ml or more; F32.A Depression, unspecified; F17.200 Nicotine dependence, unspecified, uncomplicated; K21.9 Gastro-esophageal reflux disease without esophagitis; Z81.1 Family history of alcohol abuse and dependence
CPT/HCPCS: 36415; 36416; 70450; 71045; 80053; 80306; 80307; 82962; 83735; 85025; 90471; 90656; 93005; 96374; 96375; 97165; 99285; J2405; J3411; J7030; J9999